=== PATIENT | female | born 1980 | race Caucasian/White ===

== ENCOUNTER 2016-10-07 20:31 | Emergency (ER) | payer MEDICAID ==
--- NOTE | 2016-10-10 15:16 | ER ---
ADMIT: 10/07/2016 RM/LOC: ER [facility] MR#: [id number] [id number] [place], [place] [id number] [place] [address], [place] [id number] Emergency Room Report SEX: F AGE: 36 : 1980 DATE: 10/07/2016 HISTORY OF PRESENT ILLNESS: Florence is a 36-year-old female, presents to emergency room complaining of frequency and dysuria on urination. She is 19 weeks . heart tones 155. She denies any nausea. She does have some chills, back pain at the waist. No cramping, no headache. PAST MEDICAL HISTORY: Unremarkable. MEDICATIONS: See T-sheet. ALLERGIES: SEE T-SHEET. PHYSICAL EXAMINATION: GENERAL: Very well-nourished and developed female, very pleasant. She does have some suprapubic tenderness. No abdominal pain at all. SKIN: Good color and turgor. VITAL SIGNS: Within normal limits. She is afebrile. LABS: test is positive. Urine; ketones 1+ with nitrites positive, RBCs 2. CLINICAL IMPRESSION: Urinary tract infection in woman. Given cephalexin, started in the ER. Given a prescription, rest, hydration. Her ketones are 1+, so she is recommended to increase fluids at home. She is not nauseous, so she would be appropriate to get some Powerade or Gatorade. Follow up with her primary provider within a week. ELVIA Shepherd / Bhakti Paul MD / colbyl JOB #: [id number] CC: Juan M Sullivan MD, Attending Physician
== END 2016-10-07 21:55 | disposition home or self-care (01) ==
LOC: ER 20:31
DX: O23.42 Unspecified infection of urinary tract in pregnancy, second trimester (principal); Z3A.19 19 weeks gestation of pregnancy

== ENCOUNTER → 2016-11-03 | Outpatient (CLI) | payer MEDICAID | END | disposition home or self-care (01) | LOC: RAD.S 10:48 | DX: Z36 Encounter for antenatal screening of mother (principal); Z3A.22 22 weeks gestation of pregnancy ==